=== PATIENT | male | born 1985 | race Caucasian/White ===

== ENCOUNTER 2021-12-17 20:06 | Emergency (ER) | payer MEDICAID, SELFPAY ==
[2021-12-17 20:55] VITALS: BP 165/108; PULSE 98; RESP 18; TEMP 36.6; O2SAT 99; BMI 25.4
--- NOTE | 2021-12-17 20:59 | ED_ITS ---
HPI - Psych General Chief Complaint: Psychiatric Symptoms <SOPHIE Carter Last Filed: 12/18/21 01:22> Stated Complaint: section 12 <SOPHIE Carter Last Filed: 12/18/21 01:22> Time Seen by Provider: 12/17/21 20:59 <SOPHIE Carter Last Filed: 12/18/21 01:22> Source: patient and EMS <SOPHIE Carter Last Filed: 12/18/21 01:22> Mode of arrival: EMS <SOPHIE Carter Last Filed: 12/18/21 01:22> Limitations: other (patient acutely psychotic ) <SOPHIE Carter Last Filed: 12/18/21 01:22> History of Present Illness HPI Narrative: 36 year old male presents to the ED via ambulance for acute paranoia and psychosis. EMS reports that the patient called them while standing in front of a group home that he doesn't belong to, stating suicidal ideation without plan. Upon evaluation, patient reports that people have been following him and threatening him. He endorses SI/HI to me, stating that he will hurt anyone that hurts me . Patient reports that his plan for SI is to go to the [place], obtain guns, and kill himself. When inquiring about any tactile hallucinations he states I'm not going there . When I asked patient about drugs, alcohol and tobacco he does not answer my question. History limited due to patients state of acute psychosis. Unable to obtain an accurate review of systems. <SOPHIE Carter Last Filed: 12/18/21 01:22> MD complaint: hallucinations and other (Acute psychosis) <SOPHIE Carter Last Filed: 12/18/21 01:22> Onset (ago): unknown <SOPHIE Carter Last Filed: 12/18/21 01:22> Duration: constant <SOPHIE Carter Last Filed: 12/18/21 01:22> Relieving factors: none <SOPHIE Carter Last Filed: 12/18/21 01:22> Exacerbating factors: none <SOPHIE Cartre - Last Filed: 12/18/21 01:22> Related Data Home Medications: Home Medications Medication Instructions Recorded Confirmed amitriptyline 10 mg tablet 2 tab PO BEDTIME 12/17/21 12/17/21 amlodipine 10 mg tablet 1 tab PO DAILY 12/17/21 12/17/21 amphetamine sulfate 10 mg tablet 1 tab PO BID 12/17/21 12/17/21 diazepam 5 mg tablet 1 tab PO DAILY PRN panic attack 12/17/21 12/17/21 doxazosin 8 mg tablet 1 tab PO BEDTIME 12/17/21 12/17/21 lisinopril 20 mg tablet 1 tab PO DAILY 12/17/21 12/17/21 oxycodone 10 mg tablet 1 tab PO TID 12/17/21 12/17/21 venlafaxine 150 mg 1 cap PO DAILY 12/17/21 12/17/21 capsule,extended release 24 hr <SOPHIE Carter Last Filed: 12/18/21 01:22> Allergies/Adverse Reactions: Allergies Allergy/AdvReac Type Severity Reaction Status Date / Time haloperidol [From HALDOL] Allergy Severe TREMORS Unverified 01/29/20 15:34 hydrocodone [From VICODIN] Allergy Severe HIVES Unverified 01/29/20 15:34 hydroxyzine [From VISTARIL] Allergy Severe SWELLING Unverified 01/29/20 15:34 risperidone [RISPERIDONE] Allergy Severe ANGIOEDEMA Unverified 01/29/20 15:34 acetaminophen [From VICODIN] Allergy Unknown RASH Unverified 01/29/20 15:34 bee pollen [BEE STINGS] Allergy Unknown HIVES Unverified 01/29/20 15:34 bupropion [From WELLBUTRIN] Allergy Unknown UNKNOWN Unverified 01/29/20 15:34 ketorolac [From TORADOL] Allergy Unknown UNKNOWN Unverified 01/29/20 15:34 piperacillin [From ZOSYN] Allergy Unknown UNKNOWN Unverified 01/29/20 15:34 tazobactam [From ZOSYN] Allergy Unknown UNKNOWN Unverified 01/29/20 15:34 tramadol [TRAMADOL] Allergy Unknown ITCHY Unverified 01/29/20 15:34 From VICODIN Allergy Unknown RASH Uncoded 01/29/20 15:34 <SOPHIE Carter - Last Filed: 12/18/21 01:22> Review of Systems Review of Systems: Yes Unobtainable due to mental status <SOPHIE Carter - Last Filed: 12/18/21 01:22> [facility] Past Medical History Attestation statement: The following information was validated with the patient. <SOPHIE Carter - Last Filed: 12/18/21 01:22> Source: old records reviewed and nursing notes reviewed <SOPHIE Carter - Last Filed: 12/18/21 01:22> Social History Social History: Social History Advance Directives: No Advance Directives Information Provided: Yes <SOPHIE Carter - Last Filed: 12/18/21 01:22> Physical Exam Vital Signs: Vital Signs: Last Vital Signs Temp 97.8 F 12/17/21 20:55 Pulse 54 12/18/21 12:13 Resp 16 12/18/21 12:13 BP 116/55 L 12/18/21 12:13 Pulse Ox 100 12/18/21 12:13 O2 Del Method 12/18/21 12:13 BMI result Body Mass Index 25.4 Initially patient noted to be hypertensive however did not take his blood pressure medications <SOPHIE Carter - Last Filed: 12/18/21 01:22> Vital Signs: Last Vital Signs Temp 97.8 F 12/17/21 20:55 Pulse 54 12/18/21 12:13 Resp 16 12/18/21 12:13 BP 116/55 L 12/18/21 12:13 Pulse Ox 100 12/18/21 12:13 O2 Del Method 12/18/21 12:13 BMI result Body Mass Index 25.4 <Wyatt Soler MD - Last Filed: 12/18/21 14:12> Appearance: Alert.? Oriented X3.? Patient with tangential thoughts and conversation. At times patient not making sense and speaking about random things like weapons. Patient appears to be in acute psychosis Head: Normocephalic, atraumatic, no step-offs or deformities Eyes: Pupils equal, round and reactive to light.? Neck: Normal inspection.? Neck supple.? CVS: Normal heart rate and rhythm.? Pulses normal.? Respiratory: No respiratory distress.? Breath sounds normal.? Abdomen: Soft and nontender.? Skin: Skin warm and dry.? Normal skin color.? Normal skin turgor.? Extremities: No lower extremity edema.? No calf ttp. 5/5 strength to bilateral upper and lower extremities Neuro: Oriented X 3.? No motor deficit.? No sensory deficit. CN 2-12 intact <SOPHIE Carter - Last Filed: 12/18/21 01:22> Course Reevaluation(s) Reevaluation #1: CBC within normal limits. Chemistry with a potassium of 3.2,meq of potassium will be given at this time. No other acute electrolyte abnormalities. Urine toxicology positive for opiates, amphetamines likely secondary to Adderall, benzodiazepines, cocaine and marijuana. Acetaminophen, salicylates and ethanol levels negative. At this time patient will be placed into physician observation to allow more time to be evaluated by the behavioral health team. At time observation was started patient common cooperative no acute distress. Vital signs stable. Charge nurse did vitals O2 97% on RA, Pulse 80, BP 143/91 laying down. <SOPHIE Carter - Last Filed: 12/18/21 01:22> Time: 01:21 <SOPHIE Carter - Last Filed: 12/18/21 01:22> Time: 14:12 <Wyatt Soler MD - Last Filed: 12/18/21 14:12> Reevaluation #3: Sen by crisis pt is inpatient level of care for SI/Polysubstance abuse <Wyatt Soler MD - Last Filed: 12/18/21 14:12> MDM - Psych MDM Narrative Medical decision making narrative: [id number] 36-year-old male presenting with acute psychosis, tangential thoughts, paranoia. Physical examination patient appears to be acutely psychotic with tangential thoughts, at times speaking about random things such as what been. Alert and oriented x3 however. Lungs clear. Regular rate and rhythm. Abdomen soft nontender nondistended. Neuro exam nonfocal. Ambulating with steady gait Plan at this time is for medical clearance and evaluation by the behavioral health team. To note patient is prescribed amlodipine 10 mg p.o. daily, he did not take his home meds therefore his blood pressure is elevated will give him 5 mg now, re- evaluate blood pressure in then given additional 5 if necessary. <SOPHIE Carter - Last Filed: 12/18/21 01:22> Medical Records Attestation: I reviewed the patient's medical records. <SOPHIE Carter - Last Filed: 12/18/21 01:22> Lab Data Attestation: I reviewed the patient's lab results. <SOPHIE Carter - Last Filed: 12/18/21 01:22> Result diagrams: : 12/17/21 21:25 12/17/21 21:25 <SOPHIE Carter - Last Filed: 12/18/21 01:22> Labs: Lab Results 12/17/21 12/17/21 12/17/21 Range/Units 20:57 20:57 21:25 WBC 7.5 (4.8-10.8) X10*3/uL RBC 5.04 (4.60-5.80) X10*6/uL Hgb 14.7 (14.0-18.0) g/dl Hct 42.7 (42.0-52.0) % MCV 84.7 (80.0-98.0) fL MCH 29.2 (27.0-33.0) pg MCHC 34.4 (31.0-36.0) g/dl RDW 13.7 (11.0-16.0) % Plt Count 295 (160-400) X10*3/uL MPV 10.1 (9.4-12.4) fL Immature Gran % (Auto) 0.1 (0.0-0.4) % Neut % (Auto) 54.4 (45-73) % Lymph % (Auto) 34.4 (20-40) % [place] % (Auto) 8.0 (2-11) % Eos % (Auto) 2.8 (0-4) % Baso % (Auto) 0.3 (0-2) % Lymph # (Auto) 2.6 (1.2-4.9) X10*3/uL [place] # (Auto) 0.6 (0.1-1.2) X10*3/uL Eos # (Auto) 0.2 (0.0-0.4) X10*3/uL Baso # (Auto) 0.0 (0.0-0.2) X10*3/uL Abs Immat Gran (auto) 0.01 (0.00-0.03) X10*3/uL Absolute Neuts (auto) 4.1 (2.0-8.3) x10*3/uL Absolute Nucleated RBC 0.000 (0.0-0.012) X10*3/uL Nucleated RBC % (auto) 0.0 (0.0-0.2) /100WBC Sodium (135-145) mmol/L Potassium (3.3-5.1) mmol/L Chloride (96-108) mmol/L Carbon Dioxide (22-29) mmol/L Anion Gap (12-20) BUN (9-16) mg/dL Creatinine (0.5-1.4) mg/dL Estim Creat Clear Calc Estimated GFR Random Glucose (60-115) mg/dL Calcium (8.4-10.2) mg/dL Total Bilirubin (0.0-1.0) mg/dL AST (5-37) U/L ALT (0-40) U/L Alkaline Phosphatase (39-117) U/L Total Protein (6.5-8.0) g/dL Albumin (3.5-5.0) g/dL Salicylates (15-30) mg/dL Urine Opiates Screen POSITIVE H (Not Detect) Urine Fentanyl Screen Not Detected (Not Detect) Acetaminophen (<30) mcg/mL Ur Barbiturates Screen Not Detected (Not Detect) Ur Phencyclidine Scrn Not Detected (Not Detect) Ur Amphetamines Screen POSITIVE H (Not Detect) U Benzodiazepines Scrn POSITIVE H (Not Detect) Urine Cocaine Screen POSITIVE H (Not Detect) U Marijuana (THC) Screen POSITIVE H (Not Detect) Ethyl Alcohol mg/dL COVID-19 (ALIREZA) Negative (Negative) COVID-19 Clin Com See Note 12/17/21 12/17/21 Range/Units 21:25 21:25 WBC (4.8-10.8) X10*3/uL RBC (4.60-5.80) X10*6/uL Hgb (14.0-18.0) g/dl Hct (42.0-52.0) % MCV (80.0-98.0) fL MCH (27.0-33.0) pg MCHC (31.0-36.0) g/dl RDW (11.0-16.0) % Plt Count (160-400) X10*3/uL MPV (9.4-12.4) fL Immature Gran % (Auto) (0.0-0.4) % Neut % (Auto) (45-73) % Lymph % (Auto) (20-40) % [place] % (Auto) (2-11) % Eos % (Auto) (0-4) % Baso % (Auto) (0-2) % Lymph # (Auto) (1.2-4.9) X10*3/uL [place] # (Auto) (0.1-1.2) X10*3/uL Eos # (Auto) (0.0-0.4) X10*3/uL Baso # (Auto) (0.0-0.2) X10*3/uL Abs Immat Gran (auto) (0.00-0.03) X10*3/uL Absolute Neuts (auto) (2.0-8.3) x10*3/uL Absolute Nucleated RBC (0.0-0.012) X10*3/uL Nucleated RBC % (auto) (0.0-0.2) /100WBC Sodium 142 (135-145) mmol/L Potassium 3.2 L (3.3-5.1) mmol/L Chloride 102 (96-108) mmol/L Carbon Dioxide 29 (22-29) mmol/L Anion Gap 14 (12-20) BUN 10 (9-16) mg/dL Creatinine 1.07 (0.5-1.4) mg/dL Estim Creat Clear Calc 98.5 Estimated GFR > 60 Random Glucose 160 H (60-115) mg/dL Calcium 9.1 (8.4-10.2) mg/dL Total Bilirubin 0.5 (0.0-1.0) mg/dL AST 31 (5-37) U/L ALT 35 (0-40) U/L Alkaline Phosphatase 33 L (39-117) U/L Total Protein 7.0 (6.5-8.0) g/dL Albumin 4.4 (3.5-5.0) g/dL Salicylates < 5.0 L (15-30) mg/dL Urine Opiates Screen (Not Detect) Urine Fentanyl Screen (Not Detect) Acetaminophen < 1 (<30) mcg/mL Ur Barbiturates Screen (Not Detect) Ur Phencyclidine Scrn (Not Detect) Ur Amphetamines Screen (Not Detect) U Benzodiazepines Scrn (Not Detect) Urine Cocaine Screen (Not Detect) U Marijuana (THC) Screen (Not Detect) Ethyl Alcohol < 10 mg/dL COVID-19 (ALIREZA) (Negative) COVID-19 Clin Com <SOPHIE Carter - Last Filed: 12/18/21 01:22> Lab Results 12/17/21 12/17/21 12/17/21 Range/Units 20:57 20:57 21:25 WBC 7.5 (4.8-10.8) X10*3/uL RBC 5.04 (4.60-5.80) X10*6/uL Hgb 14.7 (14.0-18.0) g/dl Hct 42.7 (42.0-52.0) % MCV 84.7 (80.0-98.0) fL MCH 29.2 (27.0-33.0) pg MCHC 34.4 (31.0-36.0) g/dl RDW 13.7 (11.0-16.0) % Plt Count 295 (160-400) X10*3/uL MPV 10.1 (9.4-12.4) fL Immature Gran % (Auto) 0.1 (0.0-0.4) % Neut % (Auto) 54.4 (45-73) % Lymph % (Auto) 34.4 (20-40) % [place] % (Auto) 8.0 (2-11) % Eos % (Auto) 2.8 (0-4) % Baso % (Auto) 0.3 (0-2) % Lymph # (Auto) 2.6 (1.2-4.9) X10*3/uL [place] # (Auto) 0.6 (0.1-1.2) X10*3/uL Eos # (Auto) 0.2 (0.0-0.4) X10*3/uL Baso # (Auto) 0.0 (0.0-0.2) X10*3/uL Abs Immat Gran (auto) 0.01 (0.00-0.03) X10*3/uL Absolute Neuts (auto) 4.1 (2.0-8.3) x10*3/uL Absolute Nucleated RBC 0.000 (0.0-0.012) X10*3/uL Nucleated RBC % (auto) 0.0 (0.0-0.2) /100WBC Sodium (135-145) mmol/L Potassium (3.3-5.1) mmol/L Chloride (96-108) mmol/L Carbon Dioxide (22-29) mmol/L Anion Gap (12-20) BUN (9-16) mg/dL Creatinine (0.5-1.4) mg/dL Estim Creat Clear Calc Estimated GFR Random Glucose (60-115) mg/dL Calcium (8.4-10.2) mg/dL Total Bilirubin (0.0-1.0) mg/dL AST (5-37) U/L ALT (0-40) U/L Alkaline Phosphatase (39-117) U/L Total Protein (6.5-8.0) g/dL Albumin (3.5-5.0) g/dL Salicylates (15-30) mg/dL Urine Opiates Screen POSITIVE H (Not Detect) Urine Fentanyl Screen Not Detected (Not Detect) Acetaminophen (<30) mcg/mL Ur Barbiturates Screen Not Detected (Not Detect) Ur Phencyclidine Scrn Not Detected (Not Detect) Ur Amphetamines Screen POSITIVE H (Not Detect) U Benzodiazepines Scrn POSITIVE H (Not Detect) Urine Cocaine Screen POSITIVE H (Not Detect) U Marijuana (THC) Screen POSITIVE H (Not Detect) Ethyl Alcohol mg/dL COVID-19 (ALIREZA) Negative (Negative) COVID-19 Clin Com See Note 12/17/21 12/17/21 Range/Units 21:25 21:25 WBC (4.8-10.8) X10*3/uL RBC (4.60-5.80) X10*6/uL Hgb (14.0-18.0) g/dl Hct (42.0-52.0) % MCV (80.0-98.0) fL MCH (27.0-33.0) pg MCHC (31.0-36.0) g/dl RDW (11.0-16.0) % Plt Count (160-400) X10*3/uL MPV (9.4-12.4) fL Immature Gran % (Auto) (0.0-0.4) % Neut % (Auto) (45-73) % Lymph % (Auto) (20-40) % [place] % (Auto) (2-11) % Eos % (Auto) (0-4) % Baso % (Auto) (0-2) % Lymph # (Auto) (1.2-4.9) X10*3/uL [place] # (Auto) (0.1-1.2) X10*3/uL Eos # (Auto) (0.0-0.4) X10*3/uL Baso # (Auto) (0.0-0.2) X10*3/uL Abs Immat Gran (auto) (0.00-0.03) X10*3/uL Absolute Neuts (auto) (2.0-8.3) x10*3/uL Absolute Nucleated RBC (0.0-0.012) X10*3/uL Nucleated RBC % (auto) (0.0-0.2) /100WBC Sodium 142 (135-145) mmol/L Potassium 3.2 L (3.3-5.1) mmol/L Chloride 102 (96-108) mmol/L Carbon Dioxide 29 (22-29) mmol/L Anion Gap 14 (12-20) BUN 10 (9-16) mg/dL Creatinine 1.07 (0.5-1.4) mg/dL Estim Creat Clear Calc 98.5 Estimated GFR > 60 Random Glucose 160 H (60-115) mg/dL Calcium 9.1 (8.4-10.2) mg/dL Total Bilirubin 0.5 (0.0-1.0) mg/dL AST 31 (5-37) U/L ALT 35 (0-40) U/L Alkaline Phosphatase 33 L (39-117) U/L Total Protein 7.0 (6.5-8.0) g/dL Albumin 4.4 (3.5-5.0) g/dL Salicylates < 5.0 L (15-30) mg/dL Urine Opiates Screen (Not Detect) Urine Fentanyl Screen (Not Detect) Acetaminophen < 1 (<30) mcg/mL Ur Barbiturates Screen (Not Detect) Ur Phencyclidine Scrn (Not Detect) Ur Amphetamines Screen (Not Detect) U Benzodiazepines Scrn (Not Detect) Urine Cocaine Screen (Not Detect) U Marijuana (THC) Screen (Not Detect) Ethyl Alcohol < 10 mg/dL COVID-19 (ALIREZA) (Negative) COVID-19 Clin Com <Wyatt Soler MD - Last Filed: 12/18/21 14:12> Critical Care Time Critical Care Time Critical Care Time: No <SOPHIE Carter - Last Filed: 12/18/21 01:22> Discharge Plan Discharge Clinical Impression: Acute psychosis <SOPHIE Carter - Last Filed: 12/18/21 01:22> Patient Disposition: Still a Patient <SOPHIE Carter - Last Filed: 12/18/21 01:22> Prescriptions: No Action lisinopril 20 mg tablet 1 tab PO DAILY venlafaxine 150 mg capsule,extended release 24hr 1 cap PO DAILY doxazosin 8 mg tablet 1 tab PO BEDTIME amitriptyline 10 mg tablet 2 tab PO BEDTIME amlodipine 10 mg tablet 1 tab PO DAILY diazepam 5 mg tablet 1 tab PO DAILY PRN (Reason: panic attack) oxycodone 10 mg tablet 1 tab PO TID amphetamine sulfate 10 mg tablet 1 tab PO BID <SOPHIE Carter - Last Filed: 12/18/21 01:22>
--- NOTE | 2021-12-17 21:16 | PC.NURSE ---
t/w attempted to draw labs on pt. pt moved during first stick and refused to let t/w try again. Pt requested phlebotomy come draw his labs. Pt declined offer for frederick jones to attempt labs. Phlebotomy contacted to draw labs. robert.
[2021-12-17 21:21] LABS: Amphetamine Screen Urine POSITIVE (Not Detect); Barbiturates, Urine Not Detected (Not Detect); Benzodiazepines Screen Urine POSITIVE (Not Detect); COVID-19 Test Negative (Negative); Cannabinoid Screen Urine POSITIVE (Not Detect); Cocaine Screen Urine POSITIVE (Not Detect); Fentanyl, urine Not Detected (Not Detect); Opiate Screen Urine POSITIVE (Not Detect); Phencyclidine Screen Urine Not Detected (Not Detect)
[2021-12-17 21:31] LABS: MANUAL DIFF FLAG NO
[2021-12-17 21:32] LABS: Basophils Percent Auto 0.3 % (0-2); Eosinophils Absolute Auto 0.2 X10*3/uL (0.0-0.4); Eosinophils Percent Auto 2.8 % (0-4); Hematocrit 42.7 % (42.0-52.0); Hemoglobin 14.7 g/dl (14.0-18.0); Imm Gran Abs Auto 0.01 X10*3/uL (0.00-0.03); Imm Gran Pct Auto 0.1 % (0.0-0.4); Lymphocytes Absolute Auto 2.6 X10*3/uL (1.2-4.9); Lymphocytes Percent Auto 34.4 % (20-40); Mean Corpuscular HGB Conc 34.4 g/dl (31.0-36.0); Mean Corpuscular Hemoglobin 29.2 pg (27.0-33.0); Mean Corpuscular Volume 84.7 fL (80.0-98.0); Mean Platelet Volume 10.1 fL (9.4-12.4); Monocytes Absolute Auto 0.6 X10*3/uL (0.1-1.2); Neutrophils Absolute Auto 4.1 x10*3/uL (2.0-8.3); Neutrophils Percent Auto 54.4 % (45-73); Platelet Count 295 X10*3/uL (160-400); Red Blood Count 5.04 X10*6/uL (4.60-5.80); Red Cell Distribution Width 13.7 % (11.0-16.0); White Blood Count 7.5 X10*3/uL (4.8-10.8)
[2021-12-17] MEDS: amLODIPine Besylate 5 MG TABLET PO (21:43)
[2021-12-17 21:55] LABS: Alanine Aminotransferase 35 U/L (0-40); Albumin Level 4.4 g/dL (3.5-5.0); Alkaline Phosphatase 33 U/L (39-117); Anion Gap 14 (12-20); Aspartate Amino Transferase 31 U/L (5-37); Bilirubin Total 0.5 mg/dL (0.0-1.0); Blood Urea Nitrogen 10 mg/dL (9-16); Calcium 9.1 mg/dL (8.4-10.2); Carbon Dioxide 29 mmol/L (22-29); Chloride 102 mmol/L (96-108); Creatinine Clr Calc Pharmacy 98.5; Estimated Glomerular Filt Rate > 60; Glucose Random 160 mg/dL (60-115); Potassium 3.2 mmol/L (3.3-5.1); Sodium 142 mmol/L (135-145)
[2021-12-17 21:59] LABS: Ethanol < 10 mg/dL
[2021-12-17 23:24] LABS: Acetaminophen LAB < 1 mcg/mL (<30); Salicylate < 5.0 mg/dL (15-30)
[2021-12-17 23:50] VITALS: RESP 16
--- NOTE | 2021-12-17 23:50 | PC.NURSE ---
this consumer loan underwriter attempted to do vital signs per provider instructions, PT refused. RR obtained. RN AWARE.
[2021-12-18] MEDS: Potassium Chloride Packet 20 MEQ PACKET PO
--- NOTE | 2021-12-18 00:04 | PC.NURSE ---
Patient refused to take Klor-Con 20 meq despite informing him of his low potassium, also refused to have his vital assessed, per patient he hasn't slept for few days and he wants to sleep. He wants to come later. we will continue to monitor.
[2021-12-18 01:19] VITALS: BP 141/91; PULSE 84; RESP 16; O2SAT 97
--- NOTE | 2021-12-18 09:09 | PC.NURSE ---
Patient slept through the night, no distress observed/reported, [facility] referral completed/confirmed/pending ETA, med rec completed/pending provider's approval, VSS, will continue to monitor.
--- NOTE | 2021-12-18 10:46 | PC.NURSE ---
PT seen by [facility], is an inpatient bedsearch
[2021-12-18 12:13] VITALS: BP 116/55; PULSE 54; RESP 16; O2SAT 100
[2021-12-18] MEDS: lisinopriL 20 MG TABLET PO (12:32)
[2021-12-18] MEDS: Venlafaxine HCl ER 150 MG CAP.ER.24H PO (12:32)
[2021-12-18] MEDS: amLODIPine Besylate 10 MG TABLET PO (12:32)
--- NOTE | 2021-12-18 12:33 | PC.NURSE ---
PT IN NAD AT THIS TIME, RESTING IN ROOM, CALM AND COOPERATIVE WITH VS. UNABLE TO CONFIRM MTD DOSE, SOPHIE CONN AWARE. OTHER RXS ENTERED.
[2021-12-18] MEDS: oxyCODONE HCl Immed Release 5 MG TABLET 10 MG PO ×2 (16:36→20:57)
[2021-12-18] MEDS: Doxazosin Mesylate 2 MG TABLET 8 MG PO (20:57)
[2021-12-18] MEDS: Amitriptyline HCl 10 MG TABLET 20 MG PO (21:24)
[2021-12-18 21:33] VITALS: BP 137/95; PULSE 73; RESP 18; TEMP 36.8; O2SAT 98
[2021-12-18 23:50] VITALS: RESP 16
--- NOTE | 2021-12-19 07:01 | PC.NURSE ---
Patient slept through the night, no distress observed/reported, disposition per [facility] [place] is section 12 inpatient bed search, medication compliant, behavior non concerning, VSS, will continue to monitor.
--- NOTE | 2021-12-19 07:29 | PC.NURSE ---
patient appears to remain asleep at opresent respirations are even and unlabored patient appears in no distress
[2021-12-19] MEDS: amLODIPine Besylate 10 MG TABLET PO (08:13)
[2021-12-19] MEDS: oxyCODONE HCl Immed Release 5 MG TABLET 10 MG PO ×2 (08:13→14:32)
[2021-12-19] MEDS: lisinopriL 20 MG TABLET PO (08:13)
[2021-12-19] MEDS: Venlafaxine HCl ER 150 MG CAP.ER.24H PO (08:14)
[2021-12-19 16:33] LABS: COVID-19 Test Negative (Negative); IDNOW Serial# 16C4AD1C
--- NOTE | 2021-12-19 16:39 | PC.NURSE ---
RN-RN report given to M3, pt pending EKG.
--- NOTE | 2021-12-19 17:06 | PC.NURSE ---
pt refused EKG.
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
== END 2021-12-19 20:18 | disposition home or self-care (01) ==
PROVIDERS: Emergency Medicine; Emergency Provider Student in an Organized Health Care Education/Training Program
DX: F14.151 Cocaine abuse with cocaine-induced psychotic disorder with hallucinations (principal); R45.851 Suicidal ideations; R45.850 Homicidal ideations; Z79.899 Other long term (current) drug therapy; Z20.822 Contact with and (suspected) exposure to COVID-19
CPT/HCPCS: 36415; 80053; 80143; 80179; 80307; 82077; 85025; 87635; 99282; 99284